=== PATIENT | male | born 1995 | race Caucasian/White ===

== ENCOUNTER 2018-04-10 01:14 | Emergency (ER) | payer SELFPAY ==
[2018-04-10 01:35] VITALS: TEMP 98; O2SAT 100
[2018-04-10] MEDS ORDERED: SULFA/TRIMETH 800/160 (DS) TAB 1 EA TAB PO ONE (02:04)
--- NOTE | 2018-04-10 02:06 | RAD ---
EXAM: Three view(s) of the right hand. INDICATION: Pain. COMPARISON: None. FINDINGS: No acute fracture or dislocation. No large soft tissue swelling. IMPRESSION: 1. No acute fracture. Electronically signed by: Nikhil Kelley MD 04/10/2018 2:04 AM CDT Workstation: [id number]
--- NOTE | 2018-04-10 02:15 | ED.PDOC ---
History of Present Illness - General Chief Complaint: Upper Extremity Injury Stated Complaint: right hand pain/swelling Time Seen by Provider: 04/10/18 01:53 Source: patient Exam Limitations: no limitations - History of Present Illness Initial Comments: the patient is a 23-year-old male presenting to the emergency room secondary to pain and swelling primarily over the fourth knuckle dorsal aspect of the right hand. He reports that he got it caught inside of a vehicle while he was working on the vehicle earlier today. He had to blaine up the engine to get pressure off of the hand nd get his hand free. It has not swollen much before he went to sleep but when he woke up an hour or so ago he noticed it was significantly swollen and he was having a hard time opening closing the hand due to pain in that area. He does have a small older laceration just opposite on the volar aspect of that hand. It does not require any suturing. There is no drainage. He reports that this is a repeat injury of an injury that he sustained approximately 2 weeks prior is well. he reports that he is up-to- date on his tetanus shot. No fever. No significant swelling before he went to bed. There is swelling extending from the area of the fourth fourth knuckle both medially and laterally as well as proximally on the dorsal aspect of the hand. Minimal discomfort to palpation on the palmar aspect.additionally the patient is rather sleepy and does have fairly pinpoint pupils. He is easily rousable. No evidence of any respiratory compromise. He denies taking anything such as a pain medication or sedative other than Advil. Timing/Duration: 1-3 hours Severity: moderate Improving Factors: nothing Worsening Factors: nothing Associated Symptoms: denies symptoms Allergies/Adverse Reactions: Allergies Tramadol Allergy (Unverified 04/10/18 02:05) Home Medications: Ambulatory Orders Ibuprofen [Motrin Tab] 600 mg PO TID PRN #15 tab 08/15/14 Sulfa/Trimeth 800/160 (Ds) Tab [Bactrim DS Tab] 1 ea PO BID #10 tab 04/10/18 Review of Systems - Review of Systems Constitutional: States: malaise EENTM: States: no symptoms reported Respiratory: States: no symptoms reported Cardiology: States: no symptoms reported Gastrointestinal/Abdominal: States: no symptoms reported Genitourinary: States: no symptoms reported Musculoskeletal: States: see HPI Skin: States: see HPI Neurological: States: no symptoms reported Endocrine: States: no symptoms reported All other Systems: No Change from Baseline Past Medical History (General) - Patient Medical History Hx Seizures: No Hx Stroke: No Hx Dementia: No Hx Asthma: No Hx of COPD: No Hx Cardiac Disorders: No Hx Congestive Heart Failure: No Hx Pacemaker: No Hx Hypertension: No Hx Thyroid Disease: No Hx Diabetes: No Hx Gastroesophageal Reflux: No Hx Renal Disease: No Hx Cancer: No Hx of HIV: No Hx Hepatitis C: No Hx MRSA: No Surgical History: no surgical history - Vaccination History Hx Tetanus, Diphtheria Vaccination: Yes Hx Influenza Vaccination: Yes - Social History Hx Alcohol Use: No Family Medical History - Family History Father Family History: Unknown Hx Family Hypertension: Yes Physical Exam - Physical Exam General Appearance: Alert, No apparent distress, Other - sleepy Eye Exam: bilateral normal - pupils are fairly small bilaterally approximately 2 mm. Extraocular movements are preserved. She is preserved. Ears, Nose, Throat: hearing grossly normal, normal pharynx Neck: full range of motion, supple Respiratory: lungs clear, normal breath sounds, no respiratory distress, no accessory muscle use Cardiovascular/Chest: normal peripheral pulses, regular rate, rhythm, no edema Peripheral Pulses: radial,right: 2+, radial,left: 2+, dorsalis pedis,right: 2+, dorsalis pedis,left: 2+ Gastrointestinal/Abdominal: non tender, soft Rectal Exam: deferred Extremity: no pedal edema, no calf tenderness, normal capillary refill, swelling , other - see history of present illness. Swelling appears to be limiting opening and closing of the hand at this time. 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 I do suspect the swelling is simply some soft tissue crush injury. No evidence of compartment syndrome. There is the outside possibility that this may be the start of a localized infection from a cut on the palmar aspect of the hand. For this reason the patient is being started on Bactrim orally and will be placed on Bactrim twice daily for the next 5 days. X-ray shows no evidence of fracture or dislocation. If redness worsens or drainage starts or he starts to develop a fever, then he may require repeat examination. additionally the patient is tall and thin with a body habitus consistent with that of a patient with Marfan syndrome. He should follow-up with his primary care doctor in 4-5 days for reevaluation of the hand. At that time, if he has never had screening for Marfan syndrome, then that should be discussed. ER warnings were given. Departure - Departure Clinical Impression: Crush injury of hand Qualifiers: Encounter type: initial encounter Laterality: right Qualified Code(s): S67.21XA - Crushing injury of right hand, initial encounter Disposition: Discharge to Home or Self Care Condition: Fair Departure Forms: ED Discharge - Pt. Copy, Patient Portal Self Enrollment Instructions: DI for Hand Injury Diet: regular diet Activity: increase activity as tolerated Prescriptions: Sulfa/Trimeth 800/160 (Ds) Tab [Bactrim DS Tab] 1 ea PO BID #10 tab Home Medications: Ambulatory Orders Ibuprofen [Motrin Tab] 600 mg PO TID PRN #15 tab 08/15/14 Sulfa/Trimeth 800/160 (Ds) Tab [Bactrim DS Tab] 1 ea PO BID #10 tab 04/10/18 Additional Instructions: the patient is a 23-year-old male presenting to the emergency room secondary to pain over the fourth knuckle and just proximal after getting stuck in an engine today. I do suspect the swelling is simply some soft tissue crush injury. No evidence of compartment syndrome. There is the outside possibility that this may be the start of a localized infection from a cut on the palmar aspect of the hand. For this reason the patient is being started on Bactrim orally and will be placed on Bactrim twice daily for the next 5 days. X-ray shows no evidence of fracture or dislocation. If redness worsens or drainage starts or he starts to develop a fever, then he may require repeat examination. additionally the patient is tall and thin with a body habitus consistent with that of a patient with Marfan syndrome. He should follow-up with his primary care doctor in 4-5 days for reevaluation of the hand. At that time, if he has never had screening for Marfan syndrome, then that should be discussed. ER warnings were given.
[2018-04-10 02:35] VITALS: BP 135/73
== END 2018-04-10 02:35 | disposition home or self-care (01) ==
LOC: ER 01:14
DX: S67.21XA Crushing injury of right hand, initial encounter (principal); W23.0XXA Caught, crushed, jammed, or pinched between moving objects, initial encounter; Y92.9 Unspecified place or not applicable

== ENCOUNTER 2018-06-15 11:25 | Emergency (ER) | payer SELFPAY ==
[2018-06-15 11:33] VITALS: TEMP 97.3
[2018-06-15] MEDS ORDERED: SODIUM CHLORIDE 0.9% 1000ML 1,000 ML IVS PRN (11:34)
[2018-06-15] MEDS ORDERED: ONDANSETRON INJ 4 MG/2 ML VIAL IV ONE (11:34)
[2018-06-15] MEDS ORDERED: SODIUM CHLORIDE 0.9% (FLUSH) 10 ML SYG IV PRN (11:34)
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
[2018-06-15] MEDS ORDERED: ANTIVENIN SNAKE POLYIMMUNE FAB 1 EA VIAL ONE (11:56)
[2018-06-15] MEDS ORDERED: SODIUM CHLORIDE 0.9% 250ML 250 ML ONE (12:06)
[2018-06-15] MEDS ORDERED: [UNRECOGNIZED DRUG - OTHER] IV INFUS ONE (12:08)
[2018-06-15] MEDS ORDERED: SODIUM CHLORIDE IV INFUS ONE (12:08)
[2018-06-15] MEDS ORDERED: ANTIVENIN SNAKE POLYIMMUNE FAB 4 EA in SODIUM CHLORIDE 0.9% 250ML 250 ML IV INFUS ONE (12:10)
--- NOTE | 2018-06-15 12:42 | RAD ---
EXAM DESCRIPTION: Chest,1 View CLINICAL HISTORY: snake bite COMPARISON: Chest radiograph dated August 29, 2007 IMPRESSION: Cardiac silhouette and pulmonary vascularity are within normal limits. Lung volumes are hyperinflated. Lungs are clear without focal consolidative infiltrates. No pleural effusion. No pneumothorax. Visualized osseous structures of the thorax show no destructive lesions. Electronically signed by: Keagan Landa MD 06/15/2018 12:41 PM CDT
[2018-06-15 14:35] VITALS: BP 152/91; O2SAT 97
== END 2018-06-15 13:55 | disposition left against medical advice (07) ==
LOC: ER 11:25
DX: S50.871A Other superficial bite of right forearm, initial encounter (principal); Z87.891 Personal history of nicotine dependence; W59.11XA Bitten by nonvenomous snake, initial encounter; Y92.89 Other specified places as the place of occurrence of the external cause
CPT/HCPCS: 36415; 71045; 80053; 82550; 82553; 84484; 85025; 85362; 85384; 85610; 85730; 93005; J2405; J7030; J7050

== ENCOUNTER → 2019-03-28 | Outpatient (CLI) | payer OTHER ==
--- NOTE | 2019-03-28 17:27 | RAD ---
EXAM DESCRIPTION: Chest,2 Views CLINICAL HISTORY: SCREENING FOR RESPIRATORY TUBERCULOSIS COMPARISON: Previous study June 15, 2018 TECHNIQUE: PA/lateral FINDINGS: There is no acute appearing cardiac or pulmonary abnormality. Heart size is normal with normal pulmonary vascularity. No pleural effusion or pneumothorax. Lungs are clear with no consolidating infiltrate. Lateral view shows intact sternum and T-spine. Lungs appear hyperexpanded on lateral view. IMPRESSION: No acute process is identified in the chest. Electronically signed by: Winston Wick MD 03/28/2019 5:25 PM CDT
== END ==
LOC: RAD 14:19
PROVIDERS: ATTEND Nurse Practitioner Family
DX: Z11.1 Encounter for screening for respiratory tuberculosis (principal)

== ENCOUNTER 2019-07-02 17:31 | Emergency (ER) | payer SELFPAY ==
[2019-07-02 17:49] VITALS: BP 154/99; TEMP 98.9; O2SAT 98
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
== END 2019-07-02 18:14 | disposition left against medical advice (07) ==
LOC: ER 17:31
DX: S09.90XA Unspecified injury of head, initial encounter (principal); Z53.21 Procedure and treatment not carried out due to patient leaving prior to being seen by health care provider

== ENCOUNTER → 2020-05-03 | Outpatient (CLI) | payer OTHER | LOC: LAB.O 09:21 | PROVIDERS: ATTEND Nurse Practitioner Family | DX: I10 Essential (primary) hypertension (principal) ==